=== PATIENT | female | born 1955 | race Caucasian/White ===

== ENCOUNTER 2017-03-29 13:46 | Inpatient (IN) | payer MEDICARE ==
[2017-03-29 18:17] LABS: EGFR Non-African American 93.3 (>60)
[2017-03-29] MEDS ORDERED: NS 0.9% 1000 ML* 1,000 ML IV ONE ×2 (18:24→20:18)
[2017-03-29 19:00] LABS: Hematocrit 40 % (35-47); Hemoglobin 14.2 g/dl (12.0-16.0); Mean Corpuscular HGB Conc 35 g/dl (31-36); Mean Corpuscular Hemoglobin 33 pg (27-31); Mean Corpuscular Volume 94 fL (80-97); Monocytes % 11 % (0-13); Red Blood Count 4.28 10^6/ul (4.0-5.4); Red Cell Distribution Width 12 % (10.5-15); White Blood Count 20.4 10^3/ul (3.5-10.8)
--- NOTE | 2017-03-29 19:03 | RAD ---
Indication: Cough. Comparison is made with previous exam dated February 11, 2012 2 views of the chest including dual energy PA views demonstrate no mediastinal shift. Heart is of normal size and configuration. There may be some atelectasis or infiltrate in the right base. IMPRESSION: There may be right basilar infiltrate or atelectasis noted.
[2017-03-29 19:58] LABS: Mean Platelet Volume 7 um3 (7.4-10.4); Platelet Count 245 10^3/ul (150-450)
[2017-03-29] MEDS ORDERED: Azithromycin IV(*) 500 MG in D5W 250 ML BAG* 250 ML IVPB SCH (21:00)
[2017-03-29] MEDS ORDERED: tiZANidine TAB* 2 MG PO SCH (21:00)
[2017-03-29] MEDS: cefTRIAXone(*) 1 GM in NS 0.9% 50 ML* 50 ML IVPB SCH (21:47)
[2017-03-29] MEDS: Gabapentin CAP(*) 300 MG PO SCH (21:54)
[2017-03-29] MEDS: tiZANidine TAB* 2 MG PO PRN (21:55)
[2017-03-29] MEDS: Metoprolol Tartrate TAB* 50 mg PO SCH (21:55)
[2017-03-29] MEDS: Nicotine Patch Removal NOTE FOLLOW UP SCH (21:56)
--- NOTE | 2017-03-29 22:49 | HP ---
CC: Dr. Gupta * HISTORY AND PHYSICAL: DATE OF ADMISSION: 03/29/17 PRIMARY CARE PROVIDER: Dr. Gupta. CHIEF COMPLAINT: Bloody sputum. HISTORY OF PRESENT ILLNESS: Ms. Reynolds is a 61-year-old female who has a history of hypertension, hypothyroidism, chronic pain, and ongoing tobacco abuse , who presents to the emergency room with complaints of coughing up bloody sputum. The patient states that beginning this past Monday, she began to feel fatigued. The patient saw Dr. Gupta for a routine visit, Monday. By the time she got home, she stated that she only wanted to go to bed. The patient's states that she has essentially spent the last 2 days in bed. The patient does indicate that she had a fever of 103.9 yesterday evening. Typically, her temperature has been running in the 101 range. The patient states that yesterday, the day prior to admission, she began to cough up bloody sputum. The patient does admit to being with [employer] this past and perhaps there was a sick contact there. In addition to the bloody sputum, she is mildly short of breath. She has had essentially no appetite whatsoever, she has been nauseous, and today she began to have diarrhea. The patient also complains of headache as well as diffuse myalgias. PAST MEDICAL HISTORY: 1. Hypothyroidism. 2. Hyperlipidemia. 3. Hypertension. 4. Chronic pain. 5. Fibromyalgia. 6. Cervical spondylosis with myelopathy. PAST SURGICAL HISTORY: 1. C-spine fusion. 2. Tonsillectomy. 3. Cholecystectomy. 4. D and C. 5. x2, and with the second , she underwent hysterectomy. MEDICATIONS: 1. Garber-3 fatty acids 3000 mg p.o. daily. 2. Gabapentin 200 mg p.o. a.m. and at 3 p.m., 300 mg p.o. q.h.s. 3. Tizanidine 4 mg p.o. t.i.d. p.r.n. spasm. 4. Aspirin 650 mg p.o. every other day. 5. Metoprolol tartrate 50 mg p.o. b.i.d. 6. Lisinopril/hydrochlorothiazide 20/25 one tab p.o. daily. 7. Levothyroxine 125 mcg p.o. daily. ALLERGIES: LIDOCAINE, NORVASC, PENICILLIN, AMITRIPTYLINE, XANAX, LATEX. FAMILY HISTORY: Mom at the age of 66. She had ovarian and thyroid cancer. Dad at the age of 86 from renal failure. He also had a history of hypertension. SOCIAL HISTORY: The patient is an ongoing smoker who smokes one half pack per day. She admits to drinking 6 to 8 beers per week. She is on disability. She is a former nurse. She is . She has 2 biological children and 2 adopted children. The patient's healthcare proxy is her , Mao. REVIEW OF SYSTEMS: A complete 11-system review of systems is obtained. Pertinent positives and negatives are as per HPI and otherwise negative. PHYSICAL EXAMINATION GENERAL: The patient is well-developed middle-aged female, sitting on the edge of the stretcher, in no acute distress, though she looks mildly ill. VITAL SIGNS: Blood pressure 154/80, pulse 98, respirations 20, temp 99.2, O2 saturation 98% on room air. HEENT: Pupils are equal. They are round. Extraocular muscles are intact. Oropharynx is clear. Oral mucosa is moist. The patient's lips do look slightly dry. There is no submandibular, cervical, or supraclavicular adenopathy. Thyroid is not enlarged. No thyroid nodules are noted. PULMONARY: Lungs are clear to auscultation bilaterally. CARDIAC: Normal S1, S2. Regular rate and rhythm. I do not appreciate any murmurs. ABDOMEN: Bowel sounds present. Abdomen is soft, nontender, nondistended. MUSCULOSKELETAL: There is no cyanosis or clubbing of the digits. There is full active range of motion of all 4 extremities. SKIN: Warm and dry. There are no rashes. NEUROLOGIC: Cranial nerves II through XII are grossly intact. Sensation is intact to light touch throughout. Strength is 5/5 and symmetric in both upper and lower extremities bilaterally. PSYCH: The patient is alert. She is oriented x3. Affect appears appropriate. LABORATORY DATA/DIAGNOSTIC DATA: WBC 20.4, hemoglobin 14.2, hematocrit 40, platelets 245. Sodium 120, potassium 3.5, chloride 87, CO2 25, BUN 8, creatinine 0.65, glucose 116, lactic acid 0.7, calcium 9.5. Bilirubin 0.6, AST 20, ALT 19, alk phos 87, CRP 233.7, albumin 4.0. Influenza A and B negative. Group A rapid strep negative. Procalcitonin pending. EKG reveals normal sinus rhythm without any acute ST-T wave abnormalities. Chest x- ray, possible right basilar infiltrate. ASSESSMENT AND PLAN: Ms. Reynolds is a 61-year-old female who has a history of hypertension, hypothyroidism, chronic pain, and ongoing tobacco abuse, who presents to the emergency room with complaints of bloody sputum, myalgias, and fever, and is admitted for sepsis secondary to possible right lower lobe pneumonia. 1. Sepsis. By sepsis-2 definition, the patient is septic as she is tachycardic and she has leukocytosis 20,400. Her source of infection is likely pneumonia. The patient is not severely septic as there is no evidence of end- organ dysfunction. The patient did have a lactic acid obtained that was normal. The patient already had 1 L of normal saline bolus in the emergency room and will have a second liter bolus of 1000 mL/hour. This is greater than the 30 mL/ kg recommendation. The patient's vital signs will be followed closely. 2. Possible right lower lobe pneumonia. I am concerned given the patient's history that she could have influenza with a negative influenza swab. The patient will be started on Tamiflu 75 mg p.o. twice daily. In addition, there does appear to be a slight right basilar infiltrate. This in conjunction with the bloody sputum and leukocytosis makes me concerned for a community-acquired pneumonia. I will go ahead and treat the patient with ceftriaxone and azithromycin for likely Strep pneumoniae pneumonia. I will go ahead and send off urine for Strep pneumoniae antigen and Legionella antigen as well as sputum culture. A procalcitonin is pending at the time of this dictation. 3. Hyponatremia, I suspect the patient's hyponatremia is hypovolemic hyponatremia. The patient indicates that she has had very poor appetite over the last 3 days and has taken in very little. In addition, she is also on hydrochlorothiazide. The patient's hydrochlorothiazide will be held and she will be continued on normal saline at 100 mL/hour after completing her second liter bolused fluid. The patient's sodium will be rechecked in the morning. 4. Hypertension. I will continue the patient's metoprolol at this point, but will hold the lisinopril/hydrochlorothiazide. If she becomes markedly hypertensive, I will add back lisinopril component of her medication. 5. Chronic pain. The patient will continue with p.r.n. tizanidine and gabapentin. 6. DVT prophylaxis: According to the Adult Thrombosis Prophylaxis Risk Factor Assessment Guide, the patient has a total risk factor score of 3 making her high risk. She will be placed on heparin 5000 units subcutaneous q.8 hours. 7. Code status is full. Again, the patient indicates that her , Mao , is her healthcare proxy. TIME SPENT: 65 minutes were spent admitting with this patient. [id number]/CPS #: [id number] SOLOMON
[2017-03-29] MEDS: Heparin VIAL(*) 5000 UNITS/ML VIAL (FIVE THOUSAND) SUBCUT SCH (22:52)
[2017-03-29] MEDS: Oseltamivir CAP* 75 MG CAP PO SCH (22:52)
[2017-03-29] MEDS: Azithromycin IV(*) 500 MG in NS 0.9% 250 ML* 250 ML IVPB SCH (22:52)
[2017-03-30] MEDS: NS 0.9% 1000 ML* 1,000 ML IV SCH ×4 (00:40→22:23)
[2017-03-30] MEDS ORDERED: Gabapentin CAP(*) 100 MG PO SCH (03:00)
[2017-03-30] MEDS: Levothyroxine TAB* 125 MCG TAB PO SCH (06:27)
[2017-03-30] MEDS: Heparin VIAL(*) 5000 UNITS/ML VIAL (FIVE THOUSAND) SUBCUT SCH ×3 (06:27→21:42)
[2017-03-30 06:42] LABS: ABS Basophils 0 10^3/ul (0-0.2); ABS Eosinophils 0.1 10^3/ul (0-0.6); ABS Lymphocytes 1.4 10^3/ul (1.0-4.8); ABS Monocytes 1.1 10^3/ul (0-0.8); ABS Nucleated RBC 0 10^3/ul; Eosinophil % 1.1 % (0-6); Hematocrit 34 % (35-47); Hemoglobin 11.9 g/dl (12.0-16.0); Lymphocyte % 16.8 % (25-47); Mean Corpuscular HGB Conc 35 g/dl (31-36); Mean Corpuscular Hemoglobin 33 pg (27-31); Mean Corpuscular Volume 94 fL (80-97); Mean Platelet Volume 7 um3 (7.4-10.4); Nucleated Red Blood Cells % 0.1; Platelet Count 231 10^3/ul (150-450); Red Cell Distribution Width 12 % (10.5-15); White Blood Count 8.6 10^3/ul (3.5-10.8)
[2017-03-30 07:08] LABS: EGFR Non-African American 113.1 (>60)
--- NOTE | 2017-03-30 07:58 | ED ---
José Miguel Griffin Nilda, scribed for Dennis Mojica MD on 03/29/17 at 1746 . Influenza-Like Illness - HPI Summary HPI Summary: This patient is a 61 year old F presenting to [facility] with a chief complaint of sudden onset constant influenza-like symptoms for the past two days. The patient rates the pain 9/10 in severity. Symptoms aggravated and alleviated by nothing. Patient reports headache, productive cough (bloody sputum), myalgia, diarrhea, and fever (highest 103 F). Patient denies sore throat and rhinorrhea. - History of Current Complaint Chief Complaint: EDFluSymptoms Time Seen by Provider: 03/29/17 13:54 Hx Obtained From: Patient Onset/Duration: Sudden Onset, Lasting Days, Still Present Severity: Severe Associated Signs & Symptoms: Fever, T Max - 103F, Myalgia, Cough, Headache - Allergy/Home Medications Allergies/Adverse Reactions: Allergies Allergy/AdvReac Type Severity Reaction Status Date / Time Alprazolam [From Xanax] Allergy Intermediate Unknown Verified 02/11/12 21:49 Reaction Details Amitriptyline Allergy Intermediate Unknown Verified 02/11/12 21:48 Reaction Details Latex Allergy Intermediate Rash Verified 02/11/12 21:49 Lidocaine Allergy Intermediate Unknown Verified 02/11/12 21:49 Reaction Details Penicillins Allergy Intermediate Unknown Verified 02/11/12 21:47 Reaction Details Home Medications: Home Medications Gabapentin CAP(*) [Neurontin 100 mg CAP(*)] 200 mg PO 1500 03/29/17 [History Confirmed 03/29/17] Gabapentin CAP(*) [Neurontin 100 mg CAP(*)] 200 mg PO QAM 03/29/17 [History Confirmed 03/29/17] Gabapentin CAP(*) [Neurontin 300 CAP(*)] 300 mg PO BEDTIME 03/29/17 [History Confirmed 03/29/17] Sully-3 Fatty Acids (Nf) [Fish Oil (NF)] 3,000 mg PO DAILY 03/29/17 [History Confirmed 03/29/17] PMH/Surg Hx/FS Hx/Imm Hx Endocrine/Hematology History: Reports: Hx Thyroid Disease Denies: Hx Diabetes, Hx Systemic Lupus Erythematosus Cardiovascular History: Reports: Hx Hypercholesterolemia, Hx Hypertension Denies: Hx Congestive Heart Failure Respiratory History: Denies: Hx Asthma, Hx Chronic Obstructive Pulmonary Disease (COPD) GI History: Denies: Hx Ulcer History: Denies: Hx Dialysis, Hx Renal Disease Musculoskeletal History: Reports: Hx Fibromyalgia Denies: Hx Rheumatoid Arthritis - Cancer History Hx Chemotherapy: No Hx Radiation Therapy: No - Surgical History Surgery Procedure, Year, and Place: cspine fusion herniated disc done here 2008. gallbladder here 2010. hysterectomy. tonsillectomy Infectious Disease History: No Infectious Disease History: Reports: Hx Shingles Denies: Hx Hepatitis, Hx Human Immunodeficiency Virus (HIV), Traveled Outside the [place] in Last 30 Days - Family History Known Family History: Positive: Hypertension, Renal Disease, Other - [place] - Social History Substance Use Type: Reports: Prescribed Review of Systems Positive: Fever Negative: Sore Throat, Nasal Discharge Positive: Cough - productive, bloody sputum Positive: Diarrhea Positive: Myalgia Positive: Headache All Other Systems Reviewed And Are Negative: Yes Physical Exam - Summary Physical Exam Summary: VITAL SIGNS: Reviewed. GENERAL: Patient is a well-developed and nourished female who is lying comfortable in the stretcher. Patient is not in any acute respiratory distress. HEAD AND FACE: No signs of trauma. No ecchymosis, hematomas or skull depressions. No sinus tenderness. EYES: PERRLA, EOMI x 2, No injected conjunctiva, no nystagmus. EARS: Hearing grossly intact. Ear canals and tympanic membranes are within normal limits. MOUTH: Oropharynx within normal limits. Dry mouth. NECK: Supple, trachea is midline, no adenopathy, no JVD, no carotid bruit, no c- spine tenderness, neck with full ROM. CHEST: Symmetric, no tenderness at palpation LUNGS: Small crackles bilat bases CVS: Regular rate and rhythm, S1 and S2 present, no murmurs or gallops appreciated. ABDOMEN: Soft, non-tender. No signs of distention. No rebound no guarding, and no masses palpated. Bowel sounds are normal. EXTREMITIES: FROM in all major joints, no edema, no cyanosis or clubbing. NEURO: Alert and oriented x 3. No acute neurological deficits. Speech is normal and follows commands. SKIN: Dry and warm Triage Information Reviewed: Yes Vital Signs On Initial Exam: Initial Vitals Temp Pulse Resp BP Pulse Ox 99.2 F 108 18 121/70 96 03/29/17 13:48 03/29/17 13:48 03/29/17 13:48 03/29/17 13:48 03/29/17 13:48 Vital Signs Reviewed: Yes Diagnostics - Vital Signs Vital Signs Temp Pulse Resp BP Pulse Ox 03/29/17 17:30 108 97 03/29/17 16:01 108 18 159/88 97 03/29/17 13:48 99.2 F 108 18 121/70 96 - Laboratory Lab Results: Lab Results 03/29/17 03/29/17 Range/Units 14:29 14:38 Influenza A (Rapid) Negative (Negative) Influenza B (Rapid) Negative (Negative) Group A Strep Rapid Negative (Negative) Result Diagrams: 03/30/17 06:18 03/30/17 06:18 Lab Statement: Any lab studies that have been ordered have been reviewed, and results considered in the medical decision making process. - Radiology CXR Radiology Interpretation Completed By: ED Physician - KIM. - EKG 1830 Cardiac Rate: NL - 96 bpm EKG Rhythm: Sinus Rhythm EKG Interpretation: ST elevation, ST depression at V2 V3 AVF V4-V6 Flu Symptom Course/Dx - Course Assessment/Plan: This patient is a 61 year old F presenting to [facility] with a chief complaint of sudden onset constant influenza-like symptoms for the past two days. The patient rates the pain 9/10 in severity. Symptoms aggravated and alleviated by nothing. Patient reports headache, productive cough (bloody sputum ), myalgia, diarrhea, and fever (highest 103 F). Patient denies sore throat and rhinorrhea. In the ED course an IV access was obtained. Patient was placed in a monitoring specialist. Patient was started with IV fluids. Labs without any significant abnormality except for hyponatremia with a NA of 120, CRP 233. Influenza A&B negative. Rapid strep negative. EKG shows a NSR at w/o ST elevations. CXR impression: No acute pathology. I discuss my physical exam, findings and test results with Dr. Azar from the hospitalist services and she agrees to admit patient to his services. Patient is hemodynamically stable alert and oriented x 3. - Diagnoses Differential Diagnosis/HQI/PQRI: Positive: Bronchitis, Broncholiolitis, Influenza, Pneumonia, Upper Respiratory Infection Provider Diagnoses: Hyponatremia, Leukocytosis - Physician Notifications Discussed Care Of Patient With: Seble Azar - Hospitalist Time Discussed With Above Provider: 18:50 Instructed by Provider To: Admit As Inpatient Discharge - Discharge Plan Condition: Stable Disposition: ADMITTED TO [facility] The documentation as recorded by the José Miguel collins Nilda accurately reflects the service I personally performed and the decisions made by , Dennis Mojica MD.
[2017-03-30] MEDS: Gabapentin CAP(*) 100 MG PO SCH ×2 (08:35→15:03)
[2017-03-30] MEDS: Metoprolol Tartrate TAB* 50 mg PO SCH ×2 (08:35→21:41)
[2017-03-30] MEDS: Nicotine PATCH 14 MG/24 HR* PATCH TRANSDERM SCH (08:36)
[2017-03-30] MEDS: tiZANidine TAB* 2 MG PO PRN ×2 (08:42→21:48)
[2017-03-30] MEDS: Oseltamivir CAP* 75 MG CAP PO SCH ×2 (09:32→21:51)
--- NOTE | 2017-03-30 13:53 | PN ---
Subjective Date of Service: 03/30/17 Interval History: Pt is feeling better but still not eating all that much. She states she is now coughing up more gonzalez blood instead of bloody mucous. She denies SOB at this time. Objective Active Medications: Aspirin (Aspirin Tab*) 650 mg PO EVERY OTHER DAY [facility] Gabapentin (Neurontin Cap(*)) 200 mg PO QAM [facility] Last Admin: 03/30/17 08:35 Dose: 200 mg Gabapentin (Neurontin Cap(*)) 300 mg PO BEDTIME [facility] Last Admin: 03/29/17 21:54 Dose: 300 mg Gabapentin (Neurontin Cap(*)) 200 mg PO 1500 [facility] Heparin Sodium (Porcine) (Heparin Vial(*)) 5,000 units SUBCUT Q8HR [facility] Last Admin: 03/30/17 06:27 Dose: 5,000 units Sodium Chloride (Ns 0.9% 1000 Ml*) 1,000 mls @ 100 mls/hr IV PER RATE [facility] Last Admin: 03/30/17 10:48 Dose: 100 mls/hr Ceftriaxone Sodium 1 gm/ (Sodium Chloride) 50 mls @ 200 mls/hr IVPB Q24H [facility] Last Admin: 03/29/17 21:47 Dose: 200 mls/hr Azithromycin 500 mg/ Sodium (Chloride) 250 mls @ 250 mls/hr IVPB Q24H [facility] Last Admin: 03/29/17 22:52 Dose: 250 mls/hr Levothyroxine Sodium (Synthroid Tab*) 125 mcg PO 0600 [facility] Last Admin: 03/30/17 06:27 Dose: 125 mcg Metoprolol Tartrate (Lopressor Tab*) 50 mg PO BID [facility] Last Admin: 03/30/17 08:35 Dose: 50 mg Nicotine (Nicotine Patch 14 Mg/24 Hr*) 1 patch TRANSDERM DAILY [facility] Last Admin: 03/30/17 08:36 Dose: 1 patch Oseltamivir Phosphate (Tamiflu Cap*) 75 mg PO BID [facility] Stop: 04/03/17 09:01 Last Admin: 03/30/17 09:32 Dose: 75 mg Pharmacy Profile Note (Nicotine Patch Removal Note*) 1 note FOLLOW UP 2100 [facility] Last Admin: 03/29/17 21:56 Dose: Not Given Tizanidine HCl (Zanaflex Tab*) 4 mg PO TID PRN PRN Reason: SPASMS Last Admin: 03/30/17 08:42 Dose: 4 mg Vital Signs - 8 hr 03/30/17 03/30/17 03/30/17 07:35 08:35 09:51 Temperature 99.0 F Pulse Rate 90 Respiratory 16 16 16 Rate Blood Pressure 137/61 (mmHg) O2 Sat by Pulse 98 Oximetry 03/30/17 11:51 Temperature 98.1 F Pulse Rate 78 Respiratory 16 Rate Blood Pressure 132/70 (mmHg) O2 Sat by Pulse 99 Oximetry Oxygen Devices in Use Now: None Appearance: Middle aged female sitting up in bed, NAD Eyes: No Scleral Icterus Ears/Nose/Mouth/Throat: Mucous Membranes Moist Respiratory: Symmetrical Chest Expansion and Respiratory Effort, Clear to Auscultation Cardiovascular: NL Sounds; No Murmurs; No JVD, RRR, No Edema Abdominal: NL Sounds; No Tenderness; No Distention Extremities: No Clubbing, Cyanosis Skin: No Rash or Ulcers, No Nodules or Sclerosis Neurological: Alert and Oriented x 3 Result Diagrams: 03/30/17 06:18 03/30/17 06:18 Additional Lab and Data: Lab Results 03/29/17 03/29/17 Range/Units 14:29 14:38 Influenza A (Rapid) Negative (Negative) Influenza B (Rapid) Negative (Negative) Group A Strep Rapid Negative (Negative) Microbiology and Other Data: Microbiology 03/29/17 21:10 Legionella Urinary Antigen - Final Urine Negative Legionella Streptococcus pneumoniae Ag Screen - Final Negative S. pneumo Antigen 03/29/17 21:10 Gram Stain - Final Sputum Expectorated Assess/Plan/Problems-Billing Ms Reynolds is a 61 yo F who has a h/o HTN, hypothyroidism and chronic pain who presented to the ER with c/o bloody sputum and fever. - Patient Problems (1) Sepsis Current Visit: Yes Status: Acute Comment: Present on admission. Was only septic based on sepsis 2 criteria. Now resolved. (2) RLL pneumonia Current Visit: Yes Status: Acute Code(s): J18.1 - LOBAR PNEUMONIA, UNSPECIFIED ORGANISM SNOMED Code(s): 131144929 Comment: The patient had a faint RLL infiltrate on CXR, this in conjunction with fever, leukocytosis and bloody sputum makes me think she does truly have a pna. Likely s. pneumoniae as that is the most common cause of pneumonia. Will continue ceftriaxone and azithromycin. Await sputum culture. Urinary antigen testing negative. Will monitor the degree of hemoptysis as she states it is now gonzalez blood and not just bloody sputum. Will also continue to treat for possible influenza as her symptoms seem like they could be attributed to the flu. (3) Hyponatremia Current Visit: Yes Status: Acute Code(s): E87.1 - HYPO-OSMOLALITY AND HYPONATREMIA SNOMED Code(s): 29274634 Comment: Likely secondary to hypovolemia. Na improving with IVF hydration. Decrease NS rate to 75ml/hr. Recheck labs in AM. Hold HCTZ indefinitely. (4) HTN (hypertension) Current Visit: Yes Status: Acute Code(s): I10 - ESSENTIAL (PRIMARY) HYPERTENSION SNOMED Code(s): 95845337 Comment: BP is under acceptable control off her lisinopril/HCTZ. Continue to monitor. (5) Hypothyroid Current Visit: Yes Status: Acute Code(s): E03.9 - HYPOTHYROIDISM, UNSPECIFIED SNOMED Code(s): 89082407 Comment: Continue synthroid. (6) Chronic pain Current Visit: Yes Status: Acute Code(s): G89.29 - OTHER CHRONIC PAIN SNOMED Code(s): 48285094 Comment: Continue current medication regimen. (7) DVT prophylaxis Current Visit: Yes Status: Acute Code(s): CKP7945 - SNOMED Code(s): 465332344 (8) Full code status Current Visit: Yes Status: Acute Code(s): Z78.9 - OTHER SPECIFIED HEALTH STATUS SNOMED Code(s): 590462074
[2017-03-30] MEDS: Potassium Chlor TAB* 20 MEQ TAB.ER PO SCH ×2 (17:55→21:41)
--- NOTE | 2017-03-30 18:23 | RAD ---
Indication: Dyspnea. Single frontal view of the chest performed at 1718 hours was reviewed. Comparison is made with previous exam dated March 29, 2017. No mediastinal shift is noted. Heart is of normal size and configuration. Airspace disease in the right base consistent with right basilar pneumonia is noted. IMPRESSION: FINDINGS CONSISTENT WITH RIGHT BASILAR PNEUMONIA. THIS IS SIMILAR TO THAT SEEN PREVIOUSLY.
[2017-03-30] MEDS: Gabapentin CAP(*) 300 MG PO SCH (21:41)
[2017-03-30] MEDS: cefTRIAXone(*) 1 GM in NS 0.9% 50 ML* 50 ML IVPB SCH (21:41)
[2017-03-30] MEDS: Nicotine Patch Removal NOTE FOLLOW UP SCH (21:50)
[2017-03-30] MEDS: Azithromycin IV(*) 500 MG in NS 0.9% 250 ML* 250 ML IVPB SCH (22:10)
[2017-03-31] MEDS: tiZANidine TAB* 2 MG PO PRN ×3 (05:32→20:47)
[2017-03-31] MEDS: Levothyroxine TAB* 125 MCG TAB PO SCH (05:33)
[2017-03-31] MEDS: Heparin VIAL(*) 5000 UNITS/ML VIAL (FIVE THOUSAND) SUBCUT SCH ×3 (05:33→21:14)
[2017-03-31 06:45] LABS: EGFR Non-African American 123.4 (>60)
[2017-03-31] MEDS ORDERED: Aspirin TAB* 325 MG PO SCH (09:00)
[2017-03-31] MEDS: Oseltamivir CAP* 75 MG CAP PO SCH ×2 (09:08→20:48)
[2017-03-31] MEDS: Gabapentin CAP(*) 100 MG PO SCH ×2 (09:09→14:37)
[2017-03-31] MEDS: Metoprolol Tartrate TAB* 50 mg PO SCH ×2 (09:09→20:49)
[2017-03-31] MEDS: Nicotine PATCH 14 MG/24 HR* PATCH TRANSDERM SCH (10:30)
[2017-03-31] MEDS ORDERED: Furosemide IV* 10 MG/ML 2 ML VIAL (20 MG) IV ONE (11:13)
--- NOTE | 2017-03-31 11:19 | PN ---
Subjective Date of Service: 03/31/17 Interval History: Pt is concerned that she put on 7lb over the last couple days. She states her abdomen is quite distended. She has been having frequent small loose BMs. She thinks the abdominal distention may be leading to her dyspnea. She continues to cough some and is bringing up gonzalez blood. Objective Active Medications: Acetaminophen (Tylenol Tab*) 650 mg PO Q4H PRN PRN Reason: PAIN Aspirin (Aspirin Tab*) 650 mg PO EVERY OTHER DAY [facility] Last Admin: 03/31/17 09:12 Dose: Not Given Furosemide (Lasix Iv*) 10 mg IV ONCE ONE Stop: 03/31/17 11:14 Gabapentin (Neurontin Cap(*)) 200 mg PO QAM [facility] Last Admin: 03/31/17 09:09 Dose: 200 mg Gabapentin (Neurontin Cap(*)) 300 mg PO BEDTIME [facility] Last Admin: 03/30/17 21:41 Dose: 300 mg Gabapentin (Neurontin Cap(*)) 200 mg PO 1500 [facility] Last Admin: 03/30/17 15:03 Dose: 200 mg Heparin Sodium (Porcine) (Heparin Vial(*)) 5,000 units SUBCUT Q8HR [facility] Last Admin: 03/31/17 05:33 Dose: 5,000 units Ceftriaxone Sodium 1 gm/ (Sodium Chloride) 50 mls @ 200 mls/hr IVPB Q24H [facility] Last Admin: 03/30/17 21:41 Dose: 200 mls/hr Azithromycin 500 mg/ Sodium (Chloride) 250 mls @ 250 mls/hr IVPB Q24H [facility] Last Admin: 03/30/17 22:10 Dose: 250 mls/hr Sodium Chloride (Ns 0.9% 1000 Ml*) 1,000 mls @ 75 mls/hr IV PER RATE [facility] Last Admin: 03/30/17 22:23 Dose: 75 mls/hr Levothyroxine Sodium (Synthroid Tab*) 125 mcg PO 0600 [facility] Last Admin: 03/31/17 05:33 Dose: 125 mcg Lisinopril (Prinivil Tab*) 20 mg PO DAILY [facility] Metoprolol Tartrate (Lopressor Tab*) 50 mg PO BID [facility] Last Admin: 03/31/17 09:09 Dose: 50 mg Nicotine (Nicotine Patch 14 Mg/24 Hr*) 1 patch TRANSDERM DAILY [facility] Last Admin: 03/31/17 10:30 Dose: 1 patch Oseltamivir Phosphate (Tamiflu Cap*) 75 mg PO BID [facility] Stop: 04/03/17 09:01 Last Admin: 03/31/17 09:08 Dose: 75 mg Pharmacy Profile Note (Nicotine Patch Removal Note*) 1 note FOLLOW UP 2100 [facility]E Last Admin: 03/30/17 21:50 Dose: Not Given Tizanidine HCl (Zanaflex Tab*) 4 mg PO TID PRN PRN Reason: SPASMS Last Admin: 03/31/17 05:32 Dose: 4 mg Vital Signs - 8 hr 03/31/17 03/31/17 03/31/17 05:32 07:48 08:00 Temperature 98.0 F Pulse Rate 77 Respiratory 20 16 16 Rate Blood Pressure 145/79 (mmHg) O2 Sat by Pulse 100 Oximetry 03/31/17 09:09 Temperature Pulse Rate Respiratory 18 Rate Blood Pressure (mmHg) O2 Sat by Pulse Oximetry Oxygen Devices in Use Now: None Appearance: Middle aged female sitting in a chair, NAD Eyes: No Scleral Icterus Ears/Nose/Mouth/Throat: Mucous Membranes Moist Respiratory: Symmetrical Chest Expansion and Respiratory Effort, Clear to Auscultation - with RLL crackles Cardiovascular: NL Sounds; No Murmurs; No JVD, RRR, - - trace LE edema Abdominal: - - BS+ soft, NT, mildly distended Extremities: No Clubbing, Cyanosis Skin: No Rash or Ulcers, No Nodules or Sclerosis Neurological: Alert and Oriented x 3 Result Diagrams: 03/30/17 06:18 03/31/17 05:59 Additional Lab and Data: Lab Results 03/29/17 03/29/17 Range/Units 14:29 14:38 Influenza A (Rapid) Negative (Negative) Influenza B (Rapid) Negative (Negative) Group A Strep Rapid Negative (Negative) Microbiology and Other Data: Microbiology 03/29/17 21:10 Legionella Urinary Antigen - Final Urine Negative Legionella Streptococcus pneumoniae Ag Screen - Final Negative S. pneumo Antigen 03/29/17 21:10 Gram Stain - Final Sputum Expectorated Assess/Plan/Problems-Billing Ms Reynolds is a 61 yo F who has a h/o HTN, hypothyroidism and chronic pain who presented to the ER with c/o bloody sputum and fever. - Patient Problems (1) Sepsis Current Visit: Yes Status: Acute Comment: Present on admission. Was only septic based on sepsis 2 criteria. Now resolved. (2) RLL pneumonia Current Visit: Yes Status: Acute Code(s): J18.1 - LOBAR PNEUMONIA, UNSPECIFIED ORGANISM SNOMED Code(s): 203951561 Comment: Repeat CXR done yesterday still shows a slight RLL infiltrate. Will continue ceftriaxone and azithromycin for CAP. Continue tamiflu for possible influenza given her symptoms on admission. Sputum culture pending. Dr. Live to see the patient today. (3) Hyponatremia Current Visit: Yes Status: Acute Code(s): E87.1 - HYPO-OSMOLALITY AND HYPONATREMIA SNOMED Code(s): 47758153 Comment: Na continues to improve slowly. The patient wanted her saline disconnected after her shower this AM due to abdominal distention and increased weight. Will give lasix 10mg IV x1 now and recheck labs again in the AM to ensure her hyponatremia does not worsen. (4) HTN (hypertension) Current Visit: Yes Status: Acute Code(s): I10 - ESSENTIAL (PRIMARY) HYPERTENSION SNOMED Code(s): 13206514 Comment: BP is now elevated. Resume lisinopril 20mg daily. Hold HCTZ indefinitely. (5) Hypothyroid Current Visit: Yes Status: Acute Code(s): E03.9 - HYPOTHYROIDISM, UNSPECIFIED SNOMED Code(s): 43532739 Comment: Continue synthroid. (6) Chronic pain Current Visit: Yes Status: Acute Code(s): G89.29 - OTHER CHRONIC PAIN SNOMED Code(s): 20232679 Comment: Continue current medication regimen. (7) DVT prophylaxis Current Visit: Yes Status: Acute Code(s): OQI1941 - SNOMED Code(s): 163652908 Comment: SQ heparin (8) Full code status Current Visit: Yes Status: Acute Code(s): Z78.9 - OTHER SPECIFIED HEALTH STATUS SNOMED Code(s): 205391723
[2017-03-31] MEDS: Lisinopril TAB* 10 MG PO SCH (11:25)
--- NOTE | 2017-03-31 13:09 | RAD ---
HISTORY: Abdominal pain, right upper quadrant pain COMPARISONS: None relevant VIEWS: Frontal views of the abdomen. FINDINGS: BOWEL: There is a nonobstructive bowel gas pattern. There is minimal stool within the colon. CALCULI: Vascular calcifications are noted in the left upper quadrant. BONES AND SOFT TISSUES: Degenerative changes are noted. OTHER FINDINGS: The lung bases are clear. There is no subphrenic gas. Surgical clips are noted in the right upper quadrant. IMPRESSION: NONOBSTRUCTIVE BOWEL GAS PATTERN.
[2017-03-31] MEDS: Acetaminophen TAB* 325 MG PO PRN (19:16)
[2017-03-31] MEDS: Gabapentin CAP(*) 300 MG PO SCH (20:48)
[2017-03-31] MEDS: cefTRIAXone(*) 1 GM in NS 0.9% 50 ML* 50 ML IVPB SCH (20:49)
--- NOTE | 2017-03-31 20:49 | CONS ---
PULMONARY CONSULTATION REPORT: DATE OF CONSULTATION: 03/31/17 CONSULTATION REQUESTED BY: Seble Azar DO REASON FOR CONSULTATION: Evaluation of pneumonia, hemoptysis. HISTORY OF PRESENT ILLNESS: The patient is a 61-year-old female, current smoker with significant smoking history with history of hypertension, hypothyroidism, chronic pain, who presents for evaluation of cough productive of bloody sputum. The patient reports sick contacts recently. She started having fevers and myalgias. The patient also reports extreme fatigue as a result. She has been having poor oral intake for a few days prior to presentation. She called her primary care physician on Monday about her symptoms. She was advised to report to the ED. The patient reports T-max of 103.9 prior to admission. The patient also reports a 1-day episode of cough productive of streaks of blood. The patient had chest x-ray in the emergency room and was found to have right lower lobe pneumonia. I have personally reviewed chest x-ray on admission and repeat chest x-ray. The patient was noted to have air space opacity with air bronchograms in right lower lobe consistent with pneumonia. No other suspicious nodules or masses were noted otherwise. The patient reported improvement in symptoms since antibiotics were initiated. The patient has issues with dry nose, nasal polyps and has history of epistaxis. She reports that due to dry nasal passages, she sometimes tries to remove the hard scabs, which results in epistaxis. The patient reports waking up last night with a tickle in the back of her throat, subsequently the cough and noticed bright red blood in the phlegm. The patient did not have any more episodes since this morning. The patient denies recent weight loss. She had loss of appetite during the illness. The patient reports chronic cough and mild shortness of breath. The patient reports having need to clear her throat in the morning. The patient also reports chronic fatigue secondary to fibromyalgia. She reports mild snoring at night. The patient also reports headaches associated with myalgias. PAST MEDICAL HISTORY: 1. Hypothyroidism. 2. Hyperlipidemia. 3. Hypertension. 4. Chronic pain. 5. Fibromyalgia. 6. Cervical spondylosis with myelopathy. 7. Tobacco abuse. PAST SURGICAL HISTORY: 1. C-spine fusion. 2. Tonsillectomy. 3. Cholecystectomy. 4. D and C. 5. x2. MEDICATIONS AT HOME: 1. [place]-3 fatty acids. 2. Gabapentin. 3. Tizanidine. 4. Aspirin. 5. Metoprolol. 6. Lisinopril/hydrochlorothiazide. 7. Levothyroxine. ALLERGIES: LIDOCAINE, NORVASC, PENICILLIN, AMITRIPTYLINE, XANAX, LATEX. FAMILY HISTORY: Mother at age of 66. She had ovarian and thyroid cancers. Dad at 86 from renal failure. SOCIAL HISTORY: Current smoker, smokes about a pack per day, started smoking in her 20's. She admits to drinking 6 to 8 beers per week, had 2 beers on Monday. She is on disability currently, is a former nurse. REVIEW OF SYSTEMS: All 14 systems reviewed and as per HPI. PHYSICAL EXAM: The patient in bed, in no apparent distress, quite conversive. Vital Signs: Temperature 98.1, pulse 80 beats per minute, respiratory rate 16 per minute, O2 sat 98% on room air, blood pressure 153/70. HEENT: Pupils equal and reactive to light, mucous membranes are moist. Dry blood and blood clots in the nose. The patient blew her nose while exam and had mild amounts of streaks of blood on the tissue. Lymphatics: No palpable cervical or supraclavicular adenopathy. Lungs: Distant breath sounds, no wheeze, mild crackles in the right base. Cardiovascular: S1, S2 present, regular. No murmurs, gallops, or rubs. Abdomen: Distended, bowel sounds present, nontender. Musculoskeletal: Normal range of motion. No cyanosis or clubbing. Negative Homans' sign. Skin: Warm and dry. No rash. Neurologic: No focal deficits. DIAGNOSTIC STUDIES/LAB DATA: WBC 8.6, hemoglobin 11.9, hematocrit 34, platelet count 231,000 with some left shift. Sodium 128, potassium 3.9, chloride 100, bicarb 22, anion gap of 6. BUN and creatinine within normal limits. CRP elevated. Procalcitonin levels within normal limits. TSH last checked in 2016, which was within normal limits, no recent labs. Chest x-ray as described above in HPI. Influenza A and B negative. Group B strep negative. Legionella and strep pneumo antigens are negative. IMPRESSION AND RECOMMENDATIONS: 61-year-old female, current smoker with significant smoking history, admitted with fever, myalgias, cough productive of phlegm with streaks of blood with another episode of hemoptysis last night. Symptoms consistent with pneumonia, I do not suspect other alternate etiology like pulmonary embolism. Hyponatremia, likely secondary to hydrochlorothiazide, hypothyroidism, and dehydration as she was not eating, also resulting in low salt intake. Hydrochlorothiazide was being held and sodium levels are improving. I do not suspect malignancy, however, will need a followup x-ray and possibly low dose lung cancer screening CT as outpatient to follow up on resolution of the opacity. In my opinion, hemoptysis/streaks of blood in the sputum likely might have resulted from nosebleed. She does appear to have this chronic epistaxis, which she attributes to dry nose. I clearly see blood clots in her nasal passage especially on the right side and evidence of old blood. Again, given fever, elevated white count on admission, myalgias, sick contact, I would treat her as pneumonia at this point with other diagnoses being less likely, however, would follow up closely with repeat imaging just to make sure the pneumonia has resolved and her symptoms have returned to her baseline. Smoking cessation education and counseling was performed, importance of quitting smoking was discussed. She is benefiting from nicotine patch at this time, does not have any cravings and she is willing to work on quitting smoking. Thank you for allowing me to participate in the care of your patient. Will follow up with you. [id number]/[facility] #: [id number] [place]
[2017-03-31] MEDS: Nicotine Patch Removal NOTE FOLLOW UP SCH (20:56)
[2017-03-31] MEDS: Azithromycin IV(*) 500 MG in NS 0.9% 250 ML* 250 ML IVPB SCH (21:14)
[2017-04-01] MEDS: Levothyroxine TAB* 125 MCG TAB PO SCH (05:54)
[2017-04-01] MEDS: tiZANidine TAB* 2 MG PO PRN ×2 (05:54→13:51)
[2017-04-01] MEDS: Heparin VIAL(*) 5000 UNITS/ML VIAL (FIVE THOUSAND) SUBCUT SCH ×4 (05:55→13:56)
[2017-04-01 06:36] LABS: EGFR Non-African American 135.6 (>60)
[2017-04-01] MEDS: Metoprolol Tartrate TAB* 50 mg PO SCH (09:17)
[2017-04-01] MEDS: Lisinopril TAB* 10 MG PO SCH (09:17)
[2017-04-01] MEDS: Oseltamivir CAP* 75 MG CAP PO SCH (09:17)
[2017-04-01] MEDS: Gabapentin CAP(*) 100 MG PO SCH ×2 (09:18→13:51)
[2017-04-01] MEDS: Nicotine PATCH 14 MG/24 HR* PATCH TRANSDERM SCH (09:19)
[2017-04-01 12:25] VITALS: BP 159/86
[2017-04-01] MEDS: Acetaminophen TAB* 325 MG PO PRN (13:52)
--- NOTE | 2017-04-01 14:27 | PN ---
Progress Note - Progress Note Date of Service: 04/01/17 Note: Discharge Progress Note Primary diagnosis: right lower lobe pneumonia Secondary diagnoses: suspected COPD hyponatremia hypothyroidism hypertension fibromyalgia tobacco abuse hemoptysis thought to be sinus or bronchial in origin Consultations: Dr. Live Procedures: none Complications: none Pertinent lab/radiology testing: Microbiology 03/29/17 21:10 Urine Legionella Urinary Antigen - Final 03/29/17 21:10 Urine Streptococcus pneumoniae Ag Screen - Final Negative Legionella Negative S. pneumo Antigen 03/29/17 21:10 Sputum Expectorated Gram Stain - Final 03/29/17 21:10 Sputum Expectorated Sputum Culture - Final Normal Stella Laboratory Tests 03/29/17 03/29/17 03/29/17 14:29 14:38 17:44 WBC Hct Sodium Potassium Lactic Acid C-Reactive Protein 233.70 H Procalcitonin Influenza A (Rapid) Negative Influenza B (Rapid) Negative Group A Strep Rapid Negative 03/29/17 03/29/17 03/29/17 17:44 17:44 17:49 WBC 20.4 H Hct 40 Sodium Potassium Lactic Acid 0.7 C-Reactive Protein Procalcitonin 0.2 Influenza A (Rapid) Influenza B (Rapid) Group A Strep Rapid 03/29/17 03/30/17 03/30/17 23:46 06:18 06:18 WBC 8.6 Hct 34 L Sodium 122 L 126 L Potassium 3.1 L Lactic Acid C-Reactive Protein Procalcitonin Influenza A (Rapid) Influenza B (Rapid) Group A Strep Rapid 03/31/17 04/01/17 05:59 05:51 WBC Hct Sodium 128 L 126 L Potassium 3.7 Lactic Acid C-Reactive Protein Procalcitonin Influenza A (Rapid) Influenza B (Rapid) TSH 5.97 Tests pending on discharge: serum osmolality Physical Exam: Selected Entries 04/01/17 11:25 Temperature 36.8 C Pulse Rate 84 Respiratory 18 Rate Blood Pressure 159/86 (mmHg) O2 Sat by Pulse 98 Oximetry
[2017-04-01] MEDS ORDERED: ceFUROXime TAB(*) 250 MG PO SCH (21:00)
[2017-04-02] MEDS ORDERED: Azithromycin TAB* 250 MG PO SCH (09:00)
--- NOTE | 2017-04-02 21:16 | DS ---
CC: Dr. Gupta; Dr. Live * DISCHARGE SUMMARY: DATE OF ADMISSION: 03/29/17 DATE OF DISCHARGE: 04/01/17 PRIMARY DIAGNOSIS: Right lower lobe pneumonia. SECONDARY DIAGNOSES: 1. Suspected chronic obstructive pulmonary disease. 2. Hyponatremia. 3. Hypothyroidism. 4. Hypertension. 5. Fibromyalgia. 6. Tobacco abuse. 7. An episode of hemoptysis thought to be related to sinusitis or bronchitis. MEDICATIONS ON DISCHARGE: 1. Aspirin 325 mg 2 tablets every other day. 2. Azithromycin 250 mg p.o. daily for 3 days. 3. Cefuroxime 500 mg p.o. b.i.d. for 5 days. 4. Gabapentin 200 mg p.o. b.i.d. plus 300 mg q.h.s. 5. Levothyroxine 137 mcg p.o. q.a.m. 6. Lisinopril 20 mg p.o. daily. 7. Metoprolol 50 mg p.o. b.i.d. 8. Nicotine patch 14 mg topically daily. 9. Fish oil 3000 mg p.o. daily. 10. Tamiflu 75 mg p.o. b.i.d. for 3 days. 11. Tizanidine 4 mg p.o. t.i.d. p.r.n. muscle spasm. HOSPITAL COURSE: The patient was admitted with a temperature of 103.9 and cough including production of bloody sputum. Given the high fever, the patient was suspected to have influenza, but she had a negative influenza swab. We ended up treating her with Tamiflu in any case given the high clinical suspicion. The patient does have a right lobe infiltrate on chest x-ray and treated with ceftriaxone and azithromycin for community-acquired pneumonia. The patient is a long-term smoker and has suspected COPD, but denies any history of having pulmonary function tests. Because of the hemoptysis, the patient was seen in consultation by Dr. Live of Pulmonology. She did not directly suspect malignancy and she attributed the hemoptysis to epistaxis, which apparently the patient has off and on. She recommended a follow-up chest x-ray after 5 to 6 weeks after this admission and a low-dose lung CT for screening. The patient was also significantly hyponatremic at 122 of sodium. She has a baseline mild hyponatremia. The patient's sodium improved to 128. She was taken off the hydrochlorothiazide and discharged on lisinopril alone. The patient had hypothyroidism and her TSH was checked at 5.97. The dose of her levothyroxine was increased as a result upon discharge. Other tests notable during admission were a serum osmolality of 257. She had a procalcitonin level of 0.2, lactic acid of 0.7. Her white count was 20.4 on admission and fell to 8.6 on discharge. On the day of discharge, the patient was ambulatory, not requiring supplemental oxygen. She had no wheezes on her lung exam. Additional lab tests that were found, the patient had negative urine Legionella antigen and negative urine streptococcal antigen. The patient had negative sputum culture. DISPOSITION: To home. ACTIVITY: As tolerated. FOLLOWUP: She is to follow up with Dr. Gupta within a week. [id number]/[facility] #: [id number] [place]
== END 2017-04-01 16:40 | disposition home or self-care (01) | DRG 871 ==
LOC: ED 13:46 → MED 19:28
PROVIDERS: ADMIT Hospitalist; ATTEND Internal Medicine
DX: A41.9 Sepsis, unspecified organism (principal); J11.00 Influenza due to unidentified influenza virus with unspecified type of pneumonia; M47.12 Other spondylosis with myelopathy, cervical region; E87.1 Hypo-osmolality and hyponatremia; R04.2 Hemoptysis; J44.9 Chronic obstructive pulmonary disease, unspecified; E03.9 Hypothyroidism, unspecified; I10 Essential (primary) hypertension; M79.7 Fibromyalgia; G89.29 Other chronic pain; E86.0 Dehydration; F17.210 Nicotine dependence, cigarettes, uncomplicated; Z79.82 Long term (current) use of aspirin; Z79.899 Other long term (current) drug therapy; Z88.0 Allergy status to penicillin; Z88.8 Allergy status to other drugs, medicaments and biological substances; Z91.040 Latex allergy status; Z80.41 Family history of malignant neoplasm of ovary; Z80.0 Family history of malignant neoplasm of digestive organs; Z82.49 Family history of ischemic heart disease and other diseases of the circulatory system; Z84.1 Family history of disorders of kidney and ureter
CPT/HCPCS: 36415; 71045; 71046; 74018; 80048; 80051; 80053; 83605; 83930; 83935; 84145; 84300; 84443; 85025; 85049; 86140; 87070; 87205; 87502; 87651; 87899; 93005; 99285; A9270-GY; J0456; J0696; J1644; J1940

== ENCOUNTER 2023-11-16 01:34 | Inpatient (IN) ==
[2023-11-16 02:11] LABS: ABS Eosinophils 0.1 10^3/uL (0.0-0.5); ABS Lymphocytes 0.6 10^3/uL (1.0-4.8); ABS Monocytes 0.9 10^3/uL (0.0-0.9); ABS Neutrophils 9.6 10^3/uL (1.5-7.6); Eosinophil % 0.5 %; Hematocrit 36.6 % (35-45); Hemoglobin 12.3 g/dL (11.5-14.3); Lymphocyte % 5.7 %; Mean Corpuscular Hemoglobin 31.2 pg (27-33); Mean Corpuscular Hgb Conc 33.8 g/dL (31-36); Mean Corpuscular Volume 92.3 fL (80-97); Mean Platelet Volume 6.8 fL (7.5-11.2); Platelet Count 391 10^3/uL (150-450); Red Blood Count 3.96 10^6/uL (3.63-4.92); Red Cell Distribution Width 12.3 % (12-17); White Blood Count 11.2 10^3/uL (3.8-11.8)
[2023-11-16] MEDS ORDERED: Ondansetron 4 mg VIAL 2 MG/ML 2 ml VIAL ONE (02:15)
[2023-11-16] MEDS: Ondansetron 4 mg VIAL 2 MG/ML 2 ml VIAL IV ONE (02:25)
[2023-11-16] MEDS: nitroGLYCERIN DRIP 25,000 MCG/250 ML BTL IV SCH (02:38)
[2023-11-16] MEDS: Furosemide 40 mg/4 ml IV VIAL IV SLOW PU ONE (02:45)
[2023-11-16 02:57] LABS: Albumin 4.8 g/dL (3.2-5.2); Albumin/Globulin Ratio 1.5 (1-3); C Reactive Protein 16.03 mg/L (<8.01); Calcium 9.5 mg/dL (8.6-10.3); Creatinine, Serum 0.88 mg/dL (0.51-0.95); Globulin 3.1 g/dL (2-4); Potassium 4.6 mmol/L (3.5-5.0); Total Bilirubin 0.5 mg/dL (0.2-1.0); Total Protein 7.9 g/dL (6.4-8.9); eGFR CKD-EPI 72.9 (>60)
[2023-11-16 03:31] LABS: High Sensitivity Troponin 1 Hr 70 pg/mL (<15)
[2023-11-16 03:50] LABS: PCO2 Arterial 28 mmHg (35-45); PO2 Arterial 83 mmHg (80-100)
[2023-11-16] MEDS ORDERED: Albuterol/Ipratropium NEB.SOL (2.5/0.5 MG) 3 ML NEB.SOLN INH PRN (03:54)
[2023-11-16] MEDS ORDERED: Albuterol 2.5mg/3 ml (0.083%) NEB.SOLN INH PRN (03:55)
[2023-11-16] MEDS: Enoxaparin 40 MG/0.4 ML SYR SUBCUT SCH (05:04)
[2023-11-16 05:20] LABS: T4, Total 12.76 mcg/dL (6.09-12.23)
[2023-11-16 05:23] LABS: TSH Ultra Thyroid Stim Horm 0.76 mcIU/mL (0.34-5.60)
[2023-11-16 06:37] LABS: ABS Lymphocytes 0.6 10^3/uL (1.0-4.8); ABS Monocytes 0.9 10^3/uL (0.0-0.9); ABS Neutrophils 7.9 10^3/uL (1.5-7.6); Eosinophil % 0.3 %; Hematocrit 30.7 % (35-45); Hemoglobin 10.8 g/dL (11.5-14.3); Lymphocyte % 6.6 %; Mean Corpuscular Hemoglobin 31.8 pg (27-33); Mean Corpuscular Hgb Conc 35.1 g/dL (31-36); Mean Corpuscular Volume 90.6 fL (80-97); Mean Platelet Volume 6.8 fL (7.5-11.2); Platelet Count 320 10^3/uL (150-450); Red Blood Count 3.38 10^6/uL (3.63-4.92); Red Cell Distribution Width 11.9 % (12-17); White Blood Count 9.5 10^3/uL (3.8-11.8)
[2023-11-16 07:00] LABS: High Sensitivity Troponin 3 Hr 321 pg/mL (<15)
[2023-11-16] MEDS ORDERED: Norepinephrine 4 MG/250mL D5W 4,000 MCG/250 ML BAG IV ONE (07:06)
[2023-11-16 07:18] LABS: Calcium 8.8 mg/dL (8.6-10.3); Creatinine, Serum 0.93 mg/dL (0.51-0.95); Magnesium 1.6 mg/dL (1.9-2.7); eGFR CKD-EPI 68.2 (>60)
[2023-11-16] MEDS: Magnesium Sulfate 2 gm BAG 2 GM/50 ML BAG IVPB ONE (08:05)
[2023-11-16] MEDS: Enoxaparin 30 MG/0.3 ML SYR SUBCUT ONE (08:09)
[2023-11-16] MEDS: Norepinephrine 4 MG/250mL D5W 4,000 MCG/250 ML BAG IV SCH (09:03)
[2023-11-16] MEDS: Furosemide 40 mg/4 ml IV VIAL IV SCH (09:09)
[2023-11-16] MEDS: Iodixanol (CONTRAST) 320 MG/ML 100 ML SDV IV ONE (11:23)
[2023-11-16] MEDS: Dexamethasone IV 4 MG/ML VIAL 1 ml VIAL IV SLOW PU SCH (12:22)
[2023-11-16 12:52] LABS: INR 1.15 (0.85-1.14)
[2023-11-16 13:28] LABS: Albumin 4.8 g/dL (3.2-5.2); Albumin/Globulin Ratio 1.6 (1-3); Calcium 8.9 mg/dL (8.6-10.3); Creatinine, Serum 0.94 mg/dL (0.51-0.95); Potassium 3.5 mmol/L (3.5-5.0); Total Bilirubin 0.5 mg/dL (0.2-1.0); Total Protein 7.8 g/dL (6.4-8.9); eGFR CKD-EPI 67.3 (>60)
[2023-11-16] MEDS: Remdesivir 100 mg Vial 200 MG in NS 0.9% 250 ml 210 ML IV ONE (14:13)
[2023-11-16] MEDS: Sulfur Hexaflouride MICROSPHR 25 MG VIAL IV PRN (15:59)
[2023-11-17 05:09] LABS: ABS Lymphocytes 1.3 10^3/uL (1.0-4.8); ABS Monocytes 0.9 10^3/uL (0.0-0.9); ABS Nucleated RBC 0.01 10^3/ul; Hematocrit 36.9 % (35-45); Hemoglobin 12.8 g/dL (11.5-14.3); Lymphocyte % 15.2 %; Mean Corpuscular Hemoglobin 31.6 pg (27-33); Mean Corpuscular Hgb Conc 34.8 g/dL (31-36); Mean Corpuscular Volume 90.9 fL (80-97); Mean Platelet Volume 6.7 fL (7.5-11.2); Nucleated Red Blood Cells % 0.1 %/100WBC (0.0-0.8); Platelet Count 356 10^3/uL (150-450); Red Blood Count 4.06 10^6/uL (3.63-4.92); Red Cell Distribution Width 12.2 % (12-17); White Blood Count 8.2 10^3/uL (3.8-11.8)
[2023-11-17 06:06] LABS: INR 1.17 (0.85-1.14)
[2023-11-17 06:21] LABS: Albumin 4.6 g/dL (3.2-5.2); Albumin/Globulin Ratio 1.5 (1-3); Calcium 9.2 mg/dL (8.6-10.3); Creatinine, Serum 0.81 mg/dL (0.51-0.95); Potassium 4.1 mmol/L (3.5-5.0); Total Bilirubin 0.5 mg/dL (0.2-1.0); Total Protein 7.6 g/dL (6.4-8.9); eGFR CKD-EPI 80.5 (>60)
[2023-11-17 06:25] LABS: Calcium 9.2 mg/dL (8.6-10.3); Creatinine, Serum 0.8 mg/dL (0.51-0.95); Potassium 4.1 mmol/L (3.5-5.0); eGFR CKD-EPI 81.7 (>60)
[2023-11-17] MEDS: Remdesivir 100 mg Vial 100 MG in NS 0.9% 250 ml 230 ML IV SCH (08:50)
[2023-11-17] MEDS: Ondansetron 4 mg VIAL 2 MG/ML 2 ml VIAL IV PRN (20:16)
[2023-11-18] MEDS: Lactated Ringers 1000 ml BAG 500 ML IV ONE (04:11)
[2023-11-18 05:19] LABS: INR 1.25 (0.85-1.14)
[2023-11-18 05:24] LABS: ABS Lymphocytes 1.7 10^3/uL (1.0-4.8); ABS Monocytes 1.3 10^3/uL (0.0-0.9); ABS Neutrophils 7.4 10^3/uL (1.5-7.6); Hematocrit 35.3 % (35-45); Hemoglobin 12.4 g/dL (11.5-14.3); Lymphocyte % 16.4 %; Mean Corpuscular Hemoglobin 31.7 pg (27-33); Mean Corpuscular Hgb Conc 35.2 g/dL (31-36); Mean Corpuscular Volume 90.2 fL (80-97); Mean Platelet Volume 7.1 fL (7.5-11.2); Platelet Count 407 10^3/uL (150-450); Red Blood Count 3.91 10^6/uL (3.63-4.92); Red Cell Distribution Width 12.2 % (12-17); White Blood Count 10.4 10^3/uL (3.8-11.8)
[2023-11-18 05:37] LABS: Creatinine, Serum 1.12 mg/dL (0.51-0.95); Magnesium 1.9 mg/dL (1.9-2.7); eGFR CKD-EPI 54.6 (>60)
[2023-11-18] MEDS: Norepinephrine 4 MG/250mL D5W 4,000 MCG/250 ML BAG IV ONE (05:53)
[2023-11-18] MEDS: Norepinephrine 4 MG/250mL D5W 4,000 MCG/250 ML BAG IV SCH (05:54)
[2023-11-18 06:27] LABS: High Sensitivity Troponin 1 Hr 100 pg/mL (<15)
[2023-11-18] MEDS: Aspirin EC 81 mg TAB.EC (enteric coated) PO SCH (08:10)
[2023-11-18] MEDS: Lactated Ringers 1000 ml BAG 1,000 ML IV ONE (22:41)
[2023-11-19 04:56] LABS: ABS Lymphocytes 3.3 10^3/uL (1.0-4.8); ABS Neutrophils 2.9 10^3/uL (1.5-7.6); ABS Nucleated RBC 0.01 10^3/ul; Eosinophil % 0.4 %; Hematocrit 32.1 % (35-45); Hemoglobin 11.3 g/dL (11.5-14.3); Lymphocyte % 45.9 %; Mean Corpuscular Hemoglobin 32.1 pg (27-33); Mean Corpuscular Hgb Conc 35.3 g/dL (31-36); Mean Corpuscular Volume 90.9 fL (80-97); Mean Platelet Volume 6.6 fL (7.5-11.2); Nucleated Red Blood Cells % 0.1 %/100WBC (0.0-0.8); Platelet Count 323 10^3/uL (150-450); Red Blood Count 3.53 10^6/uL (3.63-4.92); Red Cell Distribution Width 12.3 % (12-17); White Blood Count 7.1 10^3/uL (3.8-11.8)
[2023-11-19 05:10] LABS: INR 1.13 (0.85-1.14)
[2023-11-19 05:39] LABS: Albumin 3.7 g/dL (3.2-5.2); Albumin/Globulin Ratio 1.6 (1-3); Calcium 8.6 mg/dL (8.6-10.3); Creatinine, Serum 0.84 mg/dL (0.51-0.95); Globulin 2.3 g/dL (2-4); Magnesium 1.7 mg/dL (1.9-2.7); Potassium 3.7 mmol/L (3.5-5.0); Total Bilirubin 0.4 mg/dL (0.2-1.0); eGFR CKD-EPI 77.1 (>60)
[2023-11-19] MEDS ORDERED: hydrALAZINE 20 mg/ml 1 ML Vial IV IV SLOW PU PRN (08:36)
[2023-11-20 06:17] LABS: INR 1.05 (0.85-1.14)
[2023-11-20 06:49] LABS: ALT 45 U/L (7-52); Albumin/Globulin Ratio 1.5 (1-3); Alkaline Phosphatase 56 U/L (35-149); Anion Gap 7 mmol/L (2-16); Blood Urea Nitrogen 18 mg/dL (6-24); CO2 Carbon Dioxide 25 mmol/L (22-32); Calcium 8.9 mg/dL (8.6-10.3); Chloride 97 mmol/L (101-111); Creatinine, Serum 0.78 mg/dL (0.51-0.95); Globulin 2.6 g/dL (2-4); Glucose 107 mg/dL (70-100); Sodium 129 mmol/L (135-145); Total Bilirubin 0.4 mg/dL (0.2-1.0); Total Protein 6.6 g/dL (6.4-8.9); eGFR CKD-EPI 84.2 (>60)
[2023-11-20 08:39] LABS: Potassium Redraw 4.3 mmol/L (3.5-5.0)
[2023-11-20 12:28] VITALS: BP 120/48
== END 2023-11-20 12:10 | disposition home or self-care (01) | DRG 177 ==
LOC: ED 01:34 → EDHOLD 03:45 → ICU 11:38
PROVIDERS: ADMIT Internal Medicine Pulmonary Disease; ATTEND Internal Medicine Pulmonary Disease